=== PATIENT | female | born 1980 | race Caucasian/White ===

== ENCOUNTER 2020-04-09 07:54 | Day surgery (SDC) | payer OTHER ==
[2020-04-09 09:00] LABS: INTERNATIONAL RATION (INR) 1.01; PROTHROMBIN TIME 13.5 SEC (11.4-15.4)
[2020-04-09 11:12] LABS: GLUCOSE,CSF 55 mg/dL (40-70); PROTEIN,CSF 47 mg/dL (12-60)
[2020-04-09 11:14] LABS: APPEARANCE ALL TUBES CLEAR; COLOR ALL TUBES COLORLESS; CSF TUBE NUMBER 3
[2020-04-09 11:19] LABS: RED BLOOD CELL,CSF 0 /uL (0-10); WHITE BLOOD CELL,CSF 1 /uL (0-5)
--- NOTE | 2020-04-09 11:46 | RADIOLOGY REPORT (SQ) ---
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 FLUOROSCOPY TIME: 0.5 minutes 1 images saved to PACS. TECHNIQUE: Fluoroscopic guided lumbar puncture. LIMITATIONS: None. PROCEDURE: After written consent and assessment were obtained, the patient was brought into the fluo roscopy room and placed prone on the table. The patient's lower back was prepped in a sterile fashio n and an entry site was selected under live fluoroscopic guidance. The entry site was anesthetized wi th 1% lidocaine. A 20 gauge needle was advanced through the skin and into the thecal sac at the level of L2-L3. An opening pressure was taken, which measures 16 cm of water. Approximately 9 ml of samantha r CSF was obtained, and a closing pressure was taken, which measured 12 cm of water. The needle was removed and a sterile bandage was placed of the site. Specimens were sent to the lab for testing. A fluoroscopic spot image was saved to PACS confirming level access. FINDINGS: Clear CSF IMPRESSION: Lumbar puncture under fluoroscopy. No immediate complication. COMMENT: Patient medication list reviewed: Yes- Quality ID# [id number]:Eligible professional attests to doc umenting in the medical record they obtained, updated, or reviewed the patient's current medications. . Quality ID 145: Final reports for procedures using fluoroscopy that document radiation exposure candy sourav, or exposure time and number of fluorographic images (if radiation exposure indices are not avail able) TECHNICAL DOCUMENTATION: JOB ID: [id number] 2010 [employer]- All Rights Reserved Reading location - IP/workstation name: [email or web address]
[2020-04-09 12:23] VITALS: BP 115/79
== END 2020-04-09 12:30 | disposition home or self-care (01) ==
LOC: RAD 07:54
PROVIDERS: ATTEND Specialist
DX: G37.9 Demyelinating disease of central nervous system, unspecified (principal); G43.709 Chronic migraine without aura, not intractable, without status migrainosus; R79.9 Abnormal finding of blood chemistry, unspecified
CPT/HCPCS: 36415; 62328; 82784; 82945; 83916; 84157; 85610; 85730; 87070; 87205; 89050